=== PATIENT | male | born 1940 | race Caucasian/White ===

== ENCOUNTER 2020-09-06 15:05 | Outpatient (CLI) | payer MEDICARE, BC, SELFPAY ==
--- NOTE | 2020-09-09 09:52 | ONC FU_ITS ---
Dr. Blackwood Patient Follow-Up Note Patient: Eric Lomeli Unit #: [id number]: 1940 Dicatated By: Omid Blackwood M.D.Date of Visit:Sep 06, 2020 Onc Med Follow-up/Prog Note Chief Complaint: Hypogammaglobulinemia/common variable immunodeficiency. 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 He has a history of stage IV Hodgkin's lymphoma for which he underwent 9 months of chemotherapy treatment in 1999. He has since then been in sustained remission, with no evidence of recurrence of the Hodgkin's lymphoma. However, during follow-up he was having recurrent infections, and in 2015 when he developed pneumococcal pneumonia after having had a Prevnar 13 vaccination, his ironer or presser found that he had severe hypogammaglobulinemia. He has since then been on replacement IVIG with significant clinical improvement. He had recently moved to this area from [place], and he was seen here on 05/20/2019 for continuation of his replacement IVIG. He has multiple other medical illnesses including allergic rhinitis and asthma, hypertension, hyperlipidemia, type II diabetes, coronary artery disease, hypothyroidism, benign prostatic hypertrophy, and degenerative arthritis. He also has macular degeneration. He underwent excision of a melanoma from the right arm in March 2019. It apparently was early stage, as he did not require sentinel lymph node sampling. He underwent coronary angioplasty/stent placement in 2015. He has had kidney stones removed on multiple occasions. He has a history of smoking for 20 years, 1/2 pack of cigarettes daily or less. He quit smoking in 1987. INTERIM HISTORY: I had last seen him for a follow-up visit here on 06/20/2019. He had then moved back to [place], but he has decided now to relocate here, and he is desiring to resume his IVIG infusions. He was actually due in the early part of August, so he is already 1 month late. He has been feeling good generally. He has good energy and activity tolerance. ECOG score is 0. Appetite has been good. His weight is up a little. He says his blood sugars have been high. He has no fever or night sweats. He sometimes has cough. He does not complain of shortness of breath or chest pain. He has no GI complaints other than his stools are sometimes frequent, though not diarrhea. Bladder function remains adequate with Rapaflo. He has joint pain in his knees and sometimes in his right hand. For the past 3 months he has been having headaches, mainly in the area behind the right eye. They are relieved with ibuprofen. He has no focal neurologic symptoms. Medications: Alphagan P 2 Drop(s) (of 0.1 %) Solution Ophthalmic b.i.d., Flonase Allergy Relief 2 spray(s) (of 50 mcg/act) Suspension Nasal PRN, glipiZIDE 1 Tablet (of 10 mg) Oral b.i.d., Jardiance 1 Tablet (of 10 mg) Oral daily, Levothyroxine Sodium 1 Tablet (of 150 mcg) Oral daily, Lisinopril 1 Tablet (of 10 mg) Oral daily, Lovastatin 1 Tablet (of 40 mg) Oral daily, metFORMIN HCl 1 Tablet (of 1000 mg) Oral b.i.d., Multivitamin Adults 1 Tablet Oral b.i.d., PreserVision AREDS 2 1 Capsule Oral b.i.d., Rapaflo 1 Capsule (of 8 mg) Oral daily, Trulicity 1 (0.75 Units/0.5mL) Subcutaneous q 7 days, Vitamin C 1 Tablet Oral daily Allergies: No Known Allergies. Review of Systems: Constitutional - He has pretty good energy and he has normal activity. Appetite is good. His weight is up a little. No fever or night sweats. ECOG score is 0, ENMT - He sometimes has sinus drainage. No mouth sores. He sometimes has sore throat or difficulty swallowing, Hematologic/Lymphatic - He has some bruising, Respiratory - No shortness of breath. He sometimes has cough. No pleuritic pain or hemoptysis, Cardiovascular - No angina pain. No palpitations, Gastrointestinal - No nausea or vomiting. No heartburn or acid reflux. He is stools are sometimes frequent, but not diarrhea. No blood in the stool or black stools, Genitourinary (M) - Bladder function has been okay with Rapaflo. No dysuria or hematuria. No urgency or incontinence, Musculoskeletal - He has some joint pain, mainly knees and sometimes right hand, Integumentary - No skin rash, Neurologic - During the past 3 months he has been having headaches, mainly in the area of the right eye. They are relieved with ibuprofen. No dizziness. No numbness or tingling. No other focal neurologic symptoms, Psychiatric - No anxiety or depression. No insomnia. Vital Signs: Performed on Sep 06, 2020 15:24 Height - 68.50 in Weight - 154.0 lbs (LOW) BSA - 1.84 sq.m BMI - 23.08 Temperature - 98.1 F (LOW) Pulse - 79 /min Respiration - 18 /min BP - 109/72 mm(hg) O2 Sat - 98 % Pain - 0 Physical Examination: Constitutional - He looks good generally, Eyes - Sclerae nonicteric. Conjunctivae clear, ENMT - No lesions noted in the oral cavity, Hematologic/Lymphatic - No cervical, clavicular, or axillary adenopathy, Respiratory - Lungs are clear with good air movement bilaterally, Cardiovascular - Heart rhythm is regular. There is no murmur, gallop, or rub noted, Abdomen - Soft. Liver and spleen are not enlarged. There is no abdominal mass or ascites noted and there is no inguinal adenopathy, Extremities - No edema, Neurologic - No focal neurologic deficits noted. Impression: 1. 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 This is presumed to be a consequence of his lymphoma treatment. 2. He has had significant clinical improvement on replacement IVIG. 3. He underwent chemotherapy for stage IV Hodgkin's lymphoma in 1999. He has had sustained complete remission. 4. He underwent excision of melanoma from the right arm in March 2019. His other medical illnesses include: 5. Hypertension. 6. Hyperlipidemia. 7. Type 2 diabetes. 8. Coronary artery disease. 9. Hypothyroidism. 10. Benign prostatic hypertrophy. 11. History of recurrent nephrolithiasis. 12. Degenerative arthritis. 13. Macular degeneration. Plan: He will be given his standard replacement IVIG with 40 g of IgA poor Gammagard as soon as we have it available. He will then return for infusions on a monthly schedule. I will tentatively plan a follow-up visit in 6 months. In the meantime, I also will check his baseline labs and I will try and facilitate getting him established with a primary care provider. Signed By: Omid Blackwood M.D. <<Signature on File>>
== END 2020-09-06 15:06 | disposition home or self-care (01) ==
LOC: ONCMED 15:15
PROVIDERS: Visit Provider Internal Medicine Medical Oncology
DX: D80.1 Nonfamilial hypogammaglobulinemia (principal); I10 Essential (primary) hypertension; E78.5 Hyperlipidemia, unspecified; E11.9 Type 2 diabetes mellitus without complications; I25.10 Atherosclerotic heart disease of native coronary artery without angina pectoris; E03.9 Hypothyroidism, unspecified; N40.0 Benign prostatic hyperplasia without lower urinary tract symptoms; M19.90 Unspecified osteoarthritis, unspecified site; Z87.442 Personal history of urinary calculi
CPT/HCPCS: 99214

== ENCOUNTER 2020-09-13 06:15 | Outpatient (CLI) | payer MEDICARE, BC, SELFPAY ==
[2020-09-13] MEDS: sodium chloride 0.9% 500 ML 250 ML IV (11:45)
[2020-09-13] MEDS: acetaminophen 325 mg Tablet 650 MG PO (11:46)
[2020-09-13] MEDS: diphenhydrAMINE 25 mg Capsule PO (11:46)
[2020-09-13 11:52] LABS: Basophils # 0.1 10^3/uL (0.0-0.1); Basophils % 0.9 %; Eosinophils # 0.2 10^3/uL (0.0-0.8); Eosinophils % 2.5 %; Hematocrit 47.1 % (42.0-52.0); Lymphocytes # 1.6 10^3/uL (0.8-4.8); Lymphocytes % 18.8 %; Mean Corpuscular Hemoglobin 31.6 pg (28.0-34.0); Mean Corpuscular Volume 92.9 fL (80-94); Mean Platelet Volume 8.2 fL (7.4-10.4); Monocytes # 0.7 10^3/uL (0.2-0.9); Neutrophils # 6.05 10^3/uL (1.8-7.7); Neutrophils % 69.5 %; Nucleated Red Blood Cells % 0 %; Platelet Count 251 10^3/cmm (130-400); Red Blood Count 5.07 10^6/uL (4.1-5.3); Red Cell Distribution Width 13.2 % (12.1-15.1); White Blood Count 8.7 10^3/uL (4.0-10.0)
[2020-09-13 12:25] LABS: Alanine Aminotransferase 22 U/L (0-41); Albumin Level 4.8 g/dL (3.5-5.2); Alkaline Phosphatase 94 IU/L (40-130); Anion Gap 15.1 (5-19); Aspartate Amino Transferase 26 U/L (0-40); Blood Urea Nitrogen 17 mg/dL (8-23); Calcium 9.9 mg/dL (8.5-10.5); Carbon Dioxide 26 mmol/L (22-29); Chloride 102 mmol/L (98-107); Globulin 2.2 g/dL (1.3-4.6); Glucose 140 mg/dL (65-115); Osmolality Calculated 292 mOsm/kg (285-295); Potassium 4.1 mmol/L (3.5-5.1); Sodium 139 mmol/L (136-145); Total Bilirubin 0.5 mg/dL (0.15-1.2)
[2020-09-13 13:28] LABS: Estmated Average Glucose 189; Hemoglobin A1C 8.2 % (4.0-6.0)
== END 2020-09-13 06:16 | disposition home or self-care (01) ==
PROVIDERS: Internal Medicine Medical Oncology; Visit Provider Nurse Practitioner
DX: D80.1 Nonfamilial hypogammaglobulinemia (principal); D89.89 Other specified disorders involving the immune mechanism, not elsewhere classified; E11.9 Type 2 diabetes mellitus without complications; Z85.71 Personal history of Hodgkin lymphoma
CPT/HCPCS: 80053; 83036; 85025; 96365; 96366; J1566; J7040

== ENCOUNTER 2020-10-16 09:20 | Outpatient (CLI) | payer MEDICARE, BC, SELFPAY ==
[2020-10-16] MEDS: diphenhydrAMINE 25 mg Capsule PO (09:45)
[2020-10-16] MEDS: acetaminophen 325 mg Tablet 650 MG PO (09:45)
[2020-10-16] MEDS: sodium chloride 0.9% 500 ML 250 ML IV (09:45)
== END 2020-10-16 09:21 | disposition home or self-care (01) ==
PROVIDERS: PCP Family Medicine; Visit Provider Internal Medicine Medical Oncology
DX: D80.1 Nonfamilial hypogammaglobulinemia (principal); D89.89 Other specified disorders involving the immune mechanism, not elsewhere classified; Z85.71 Personal history of Hodgkin lymphoma
CPT/HCPCS: 96365; 96366; J1566; J7040

== ENCOUNTER 2020-11-19 09:37 | Outpatient (CLI) | payer MEDICARE, BC, SELFPAY ==
[2020-11-19] MEDS: diphenhydrAMINE 25 mg Capsule PO (10:40)
[2020-11-19] MEDS: acetaminophen 325 mg Tablet 650 MG PO (10:40)
[2020-11-19] MEDS: sodium chloride 0.9% 500 ML 250 ML IV (10:50)
== END 2020-11-19 09:38 | disposition home or self-care (01) ==
LOC: ONCMED 09:40
PROVIDERS: PCP Family Medicine; Visit Provider Internal Medicine Medical Oncology
DX: D80.1 Nonfamilial hypogammaglobulinemia (principal); D89.89 Other specified disorders involving the immune mechanism, not elsewhere classified; Z85.71 Personal history of Hodgkin lymphoma
CPT/HCPCS: 96365; 96366; J1566; J7040

== ENCOUNTER → 2020-12-25 10:29 | Outpatient (BNVA) | payer MEDICARE, BC, SELFPAY | PROVIDERS: PCP Family Medicine; Visit Provider Family Medicine | DX: E03.9 Hypothyroidism, unspecified (principal); E11.9 Type 2 diabetes mellitus without complications; I10 Essential (primary) hypertension; Z79.4 Long term (current) use of insulin; Z68.22 Body mass index [BMI] 22.0-22.9, adult; F17.211 Nicotine dependence, cigarettes, in remission | CPT/HCPCS: 80053; 80061; 83036; 84443 ==

== ENCOUNTER 2020-12-26 09:18 | Outpatient (CLI) | payer MEDICARE, BC, SELFPAY ==
[2020-12-26] MEDS: acetaminophen 325 mg Tablet 650 MG PO (10:23)
[2020-12-26] MEDS: diphenhydrAMINE 25 mg Capsule PO (10:23)
== END 2020-12-26 09:19 | disposition home or self-care (01) ==
PROVIDERS: PCP Family Medicine; Visit Provider Internal Medicine Medical Oncology
DX: D80.1 Nonfamilial hypogammaglobulinemia (principal); D89.89 Other specified disorders involving the immune mechanism, not elsewhere classified; Z85.71 Personal history of Hodgkin lymphoma
CPT/HCPCS: 96365; 96366; 96375; J1566

== ENCOUNTER 2021-01-23 08:49 | Outpatient (CLI) | payer MEDICARE, BC, SELFPAY ==
[2021-01-23] MEDS: acetaminophen 325 mg Tablet 650 MG PO (09:20)
[2021-01-23] MEDS: diphenhydrAMINE 25 mg Capsule PO (09:20)
[2021-01-23] MEDS: sodium chloride 0.9% 500 ML 250 ML IV (09:20)
== END 2021-01-23 08:50 | disposition home or self-care (01) ==
PROVIDERS: PCP Family Medicine; Visit Provider Internal Medicine Medical Oncology
DX: D80.1 Nonfamilial hypogammaglobulinemia (principal); D89.89 Other specified disorders involving the immune mechanism, not elsewhere classified; Z85.71 Personal history of Hodgkin lymphoma
CPT/HCPCS: 96365; 96366; J1566; J7040

== ENCOUNTER 2021-02-20 08:41 | Outpatient (CLI) | payer MEDICARE, BC, SELFPAY ==
[2021-02-20] MEDS: acetaminophen 325 mg Tablet 650 MG PO (09:30)
[2021-02-20] MEDS: diphenhydrAMINE 25 mg Capsule PO (09:30)
== END 2021-02-20 08:42 | disposition home or self-care (01) ==
PROVIDERS: PCP Family Medicine; Visit Provider Internal Medicine Medical Oncology
DX: D80.1 Nonfamilial hypogammaglobulinemia (principal)
CPT/HCPCS: 96365; 96366; J1566

== ENCOUNTER 2021-03-20 08:15 | Outpatient (CLI) | payer MEDICARE, BC, SELFPAY ==
[2021-03-20 09:13] LABS: Basophils # 0.1 10^3/uL (0.0-0.1); Basophils % 0.7 %; Eosinophils # 0.1 10^3/uL (0.0-0.8); Hematocrit 49.6 % (42.0-52.0); Hemoglobin 16.3 g/dL (11.7-16.6); Lymphocytes # 1.9 10^3/uL (0.8-4.8); Lymphocytes % 19.5 %; Mean Corpuscular HGB Conc 32.9 g/dL (30.0-36.0); Mean Corpuscular Hemoglobin 30.6 pg (28.0-34.0); Mean Corpuscular Volume 93.1 fL (80-94); Mean Platelet Volume 8.8 fL (7.4-10.4); Monocytes # 0.8 10^3/uL (0.2-0.9); Monocytes % 8.5 %; Neutrophils # 6.71 10^3/uL (1.8-7.7); Neutrophils % 70.1 %; Nucleated Red Blood Cells % 0 %; Platelet Count 293 10^3/cmm (130-400); Red Blood Count 5.33 10^6/uL (4.1-5.3); Red Cell Distribution Width 13.5 % (12.1-15.1); White Blood Count 9.6 10^3/uL (4.0-10.0)
[2021-03-20 09:32] LABS: Alanine Aminotransferase 16 U/L (0-41); Albumin Level 4.3 g/dL (3.5-5.2); Alkaline Phosphatase 80 IU/L (40-130); Anion Gap 16.5 (5-19); Aspartate Amino Transferase 21 U/L (0-40); Blood Urea Nitrogen 25 mg/dL (8-23); Calcium 8.8 mg/dL (8.5-10.5); Carbon Dioxide 25 mmol/L (22-29); Chloride 100 mmol/L (98-107); Globulin 2.4 g/dL (1.3-4.6); Glucose 221 mg/dL (65-115); Osmolality Calculated 295 mOsm/kg (285-295); Potassium 4.5 mmol/L (3.5-5.1); Sodium 137 mmol/L (136-145); Total Bilirubin 0.8 mg/dL (0.15-1.2); Total Protein 6.7 g/dL (6.6-8.7)
[2021-03-20] MEDS: diphenhydrAMINE 25 mg Capsule PO (10:17)
[2021-03-20] MEDS: acetaminophen 325 mg Tablet 650 MG PO (10:17)
[2021-03-20] MEDS: sodium chloride 0.9% 500 ML 250 ML IV (10:17)
[2021-03-20 13:27] LABS: Estmated Average Glucose 157; Hemoglobin A1C 7.1 % (4.0-6.0)
--- NOTE | 2021-03-20 19:27 | ONC FU_ITS ---
Dr. Blackwood Patient Follow-Up Note Patient: Eric Lomeli Unit #: [id number]: 1940 Dicatated By: Omid Blackwood M.D.Date of Visit:March 20, 2021 Onc Med Follow-up/Prog Note Chief Complaint: Hypogammaglobulinemia/common variable immunodeficiency. 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 He has a history of stage IV Hodgkin lymphoma for which he underwent 9 months of chemotherapy treatment in 1999. He has since then been in sustained remission, with no evidence of recurrence of the Hodgkin lymphoma. However, during follow-up he was having recurrent infections, and in 2015 when he developed pneumococcal pneumonia after having had a Prevnar 13 vaccination, his materials inspector found that he had severe hypogammaglobulinemia. He then began on replacement IVIG with significant clinical improvement. I had seen him initially in May 2019 after he had moved to this area from [place], and he continued his replacement IVIG. Shortly thereafter he moved back to [place], but he then returned to this area in September 2020, and he has since then continued his IVIG infusions here monthly. He has multiple other medical illnesses including allergic rhinitis and asthma, hypertension, hyperlipidemia, type II diabetes, coronary artery disease, hypothyroidism, benign prostatic hypertrophy, and degenerative arthritis. He also has macular degeneration. He underwent excision of a melanoma from the right arm in March 2019. It apparently was early stage, as he did not require sentinel lymph node sampling. He underwent coronary angioplasty/stent placement in 2015. He has had kidney stones removed on multiple occasions. He has a history of smoking for 20 years, 1/2 pack of cigarettes daily or less. He quit smoking in 1987. INTERIM HISTORY: He is seen for a scheduled visit. He has been feeling good generally. He says his energy has picked up. He has normal activity. ECOG score is 0. He still complains that he has no appetite, but he does eat. His weight is down about 5 pounds. He does not have fever. He had 1 recent episode of sweating. He has sinus congestion and he irrigates daily. He also occasionally uses Flonase and/or Mucinex. He has not had sore mouth or throat. He has cough all the time, but that he also attributes to allergies. He does not complain of shortness of breath or chest pain. He had a recent episode of vomiting. He has occasional acid reflux, managed with Tums. His bowel function is okay, though he tends to have loose stools in the morning until about noon, attributable to coffee. Bladder function remains adequate with Rapaflo. He has no significant joint or bone pain. He does not complain of headache or dizziness, and he has no focal neurologic symptoms. Medications: Alphagan P 2 Drop(s) (of 0.1 %) Solution Ophthalmic b.i.d., Flonase Allergy Relief 2 spray(s) (of 50 mcg/act) Suspension Nasal PRN, glipiZIDE 1 Tablet (of 10 mg) Oral b.i.d., Jardiance 1 Tablet (of 25 mg) Oral daily, Levothyroxine Sodium 1 Tablet (of 150 mcg) Oral daily, Lisinopril 1 Tablet (of 10 mg) Oral daily, Lovastatin 1 Tablet (of 40 mg) Oral daily, metFORMIN HCl 1 Tablet (of 1000 mg) Oral b.i.d., Multivitamin Adults 1 Tablet Oral b.i.d., PreserVision AREDS 2 1 Capsule Oral b.i.d., Rapaflo 1 Capsule (of 8 mg) Oral daily, Trulicity 1 (0.75 Units/0.5mL) Subcutaneous q 7 days, Vitamin C 1 Tablet Oral daily Allergies: No Known Allergies. Vital Signs: Performed on March 20, 2021 09:41 Height - 68.50 in Weight - 149.8 lbs (LOW) BSA - 1.82 sq.m BMI - 22.45 Temperature - 97.5 F (LOW) Pulse - 97 /min Respiration - 16 /min BP - 130/68 mm(hg) O2 Sat - 97 % Pain - 0 Physical Examination: Constitutional - He looks good generally, Eyes - Sclerae nonicteric. Conjunctivae clear, ENMT - No lesions noted in the oral cavity, Hematologic/Lymphatic - No cervical, clavicular, or axillary adenopathy, Respiratory - Lungs are clear with good air movement bilaterally, Cardiovascular - Heart rhythm is regular. There is no murmur, gallop, or rub noted, Abdomen - Soft. Liver and spleen are not enlarged. There is no abdominal mass or ascites noted and there is no inguinal adenopathy, Extremities - No edema, Neurologic - No focal neurologic deficits noted. Lab/Imaging: Test performed on March 20, 2021 08:33 Sodium 137 mmol/L Potassium 4.5 mmol/L Chloride 100 mmol/L Est Avg Glucose (eAG) 157 mg/dL CO2 25 mmol/L Anion Gap 16.5 BUN 25 mg/dL Creatinine 1.1 mg/dL Cr Clearance (Est) 53.19 mL/min Glucose 221 mg/dL Osmolality - Calculated 295 mOsm/kg Calcium 8.8 mg/dL Protein, Total 6.7 g/dL Albumin 4.3 g/dL Globulin 2.4 g/dL Bilirubin, Total 0.8 mg/dL ALT (SGPT) 16 U/L AST (SGOT) 21 U/L Alkaline Phosphatase 80 IU/L Hemoglobin A1C % 7.1 % WBC 9.6 10 3/uL RBC 5.33 10 6/uL HGB 16.3 g/dL HCT 49.6 % MCV 93.1 fL MCH 30.6 pg MCHC 32.9 g/dL RDW 13.5 % Platelet Count 293 10 3/cmm MPV 8.8 fL Neutrophils 6.71 10 3/uL Lymphocytes 1.9 10 3/uL Monocytes 0.8 10 3/uL Eosinophils 0.1 10 3/uL Basophils 0.1 10 3/uL Neutrophil % 70.1 % Lymphocyte % 19.5 % Monocyte % 8.5 % Eosinophil % 1.0 % Basophils % 0.7 % NRBC % 0 % Problem List: 1. Acquired hypogammaglobulinemia/combined variable immunodeficiency. This is presumed to be a consequence of his lymphoma treatment. 2. He underwent chemotherapy for stage IV Hodgkin lymphoma in 1999. He has had sustained complete remission. 3. He underwent excision of melanoma from the right arm in March 2019. 4. Hypertension. 5. Hyperlipidemia. 6. Type 2 diabetes. 7. Coronary artery disease. 8. Hypothyroidism. 9. Benign prostatic hypertrophy. 10. History of recurrent nephrolithiasis. 11. Degenerative arthritis. 12. Macular degeneration. 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 This is presumed to be a consequence of his lymphoma treatment. He has had significant clinical improvement on replacement IVIG. He will be given his standard replacement IVIG with 40 g of IgA poor Gammagard monthly. I will see him again in 6 months, or sooner as needed. Signed By: Omid Blackwood M.D. <<Signature on File>>
== END 2021-03-20 08:16 | disposition home or self-care (01) ==
LOC: ONCMED 08:18
PROVIDERS: PCP Family Medicine; Visit Provider Internal Medicine Medical Oncology
DX: D80.1 Nonfamilial hypogammaglobulinemia (principal); I10 Essential (primary) hypertension; E78.5 Hyperlipidemia, unspecified; E11.59 Type 2 diabetes mellitus with other circulatory complications; I25.10 Atherosclerotic heart disease of native coronary artery without angina pectoris; E03.9 Hypothyroidism, unspecified; N40.0 Benign prostatic hyperplasia without lower urinary tract symptoms; M19.90 Unspecified osteoarthritis, unspecified site; H35.30 Unspecified macular degeneration; Z87.442 Personal history of urinary calculi; Z85.72 Personal history of non-Hodgkin lymphomas; Z85.820 Personal history of malignant melanoma of skin; Z79.899 Other long term (current) drug therapy
CPT/HCPCS: 36415; 80053; 83036; 85025; 96365; 96366; 99214; J1566; J7040

== ENCOUNTER 2021-04-23 09:27 | Outpatient (CLI) | payer MEDICARE, BC, SELFPAY ==
[2021-04-23] MEDS: acetaminophen 325 mg Tablet 650 MG PO (09:55)
[2021-04-23] MEDS: diphenhydrAMINE 25 mg Capsule PO (09:55)
[2021-04-23] MEDS: sodium chloride 0.9% 500 ML 75 ML IV (09:55)
== END 2021-04-23 09:28 | disposition home or self-care (01) ==
LOC: ONCMED 09:29
PROVIDERS: PCP Family Medicine; Visit Provider Internal Medicine Medical Oncology
DX: D80.1 Nonfamilial hypogammaglobulinemia (principal); Z79.899 Other long term (current) drug therapy; Z85.72 Personal history of non-Hodgkin lymphomas; Z92.21 Personal history of antineoplastic chemotherapy
CPT/HCPCS: 96365; 96366; J1566; J7040

== ENCOUNTER → 2021-05-20 12:14 | Outpatient (BNVA) | payer MEDICARE, BC, SELFPAY | PROVIDERS: PCP Family Medicine; Visit Provider Nurse Practitioner Family | DX: Z20.822 Contact with and (suspected) exposure to COVID-19 (principal) | CPT/HCPCS: 87635 ==

== ENCOUNTER 2021-06-06 08:01 | Outpatient (CLI) | payer MEDICARE, BC, SELFPAY ==
[2021-06-06] MEDS: acetaminophen 325 mg Tablet 650 MG PO (09:00)
[2021-06-06] MEDS: diphenhydrAMINE 25 mg Capsule PO (09:00)
== END 2021-06-06 08:02 | disposition home or self-care (01) ==
LOC: ONCMED 08:04
PROVIDERS: PCP Family Medicine; Visit Provider Internal Medicine Medical Oncology
DX: D80.1 Nonfamilial hypogammaglobulinemia (principal); Z79.899 Other long term (current) drug therapy
CPT/HCPCS: 96365; 96366; J1566

== ENCOUNTER 2021-07-23 09:38 | Outpatient (CLI) | payer MEDICARE, BC, SELFPAY ==
[2021-07-23] MEDS: acetaminophen 325 mg Tablet 650 MG PO (09:52)
[2021-07-23] MEDS: diphenhydrAMINE 25 mg Capsule PO (09:52)
[2021-07-23] MEDS: sodium chloride 0.9% 250 ML 45 ML IV (10:00)
== END 2021-07-23 09:39 | disposition home or self-care (01) ==
PROVIDERS: PCP Family Medicine; Visit Provider Internal Medicine Medical Oncology
DX: D80.1 Nonfamilial hypogammaglobulinemia (principal); Z79.899 Other long term (current) drug therapy
CPT/HCPCS: 96365; 96366; J1566; J7050

== ENCOUNTER 2022-09-30 09:05 | Oncology outpatient (recurring) (ONCR) | payer MEDICARE, BC, SELFPAY ==
[2022-09-30 09:33] LABS: Basophils # 0.1 10^3/uL (0.0-0.1); Basophils % 0.7 %; Eosinophils # 0.2 10^3/uL (0.0-0.8); Eosinophils % 2.2 %; Hematocrit 46.6 % (42.0-52.0); Hemoglobin 15.4 g/dL (11.7-16.6); Lymphocytes # 1.4 10^3/uL (0.8-4.8); Lymphocytes % 17.6 %; Mean Corpuscular Hemoglobin 31.4 pg (28.0-34.0); Mean Corpuscular Volume 94.9 fl (80-94); Mean Platelet Volume 8.7 fL (7.4-10.4); Monocytes # 0.6 10^3/uL (0.2-0.9); Neutrophils # 5.89 10^3/uL (1.8-7.7); Neutrophils % 72.3 %; Nucleated Red Blood Cells % 0 %; Platelet Count 221 10^3/cmm (130-400); Red Blood Count 4.91 10^6/uL (4.1-5.3); Red Cell Distribution Width 12.9 % (12.1-15.1); White Blood Count 8.2 10^3/uL (4.0-10.0)
[2022-09-30 09:52] LABS: Alanine Aminotransferase 15 U/L (0-41); Albumin Level 4.3 g/dL (3.5-5.2); Alkaline Phosphatase 113 U/L (40-130); Anion Gap 14.9 (5-19); Aspartate Amino Transferase 16 U/L (0-40); Blood Urea Nitrogen 12 mg/dL (8-23); Calcium 9.6 mg/dL (8.5-10.5); Carbon Dioxide 25 mmol/L (22-29); Chloride 102 mmol/L (98-107); Globulin 2.5 g/dL (1.3-4.6); Glucose 292 mg/dL (65-115); Immunoglobulin IGA 50 mg/dL (70-400); Immunoglobulin IGG 511 mg/dL (700-1600); Immunoglobulin IGM 25 mg/dL (40-230); Osmolality Calculated 297 mOsm/kg (285-295); Potassium 3.9 mmol/L (3.5-5.1); Sodium 138 mmol/L (136-145); Total Bilirubin 0.5 mg/dL (0.15-1.2); Total Protein 6.8 g/dL (6.6-8.7)
[2022-09-30 11:09] LABS: Estmated Average Glucose 200; Hemoglobin A1C 8.6 % (4.0-6.0)
[2022-09-30] MEDS: acetaminophen 325 mg Tablet 650 MG PO (11:48)
[2022-09-30] MEDS: diphenhydrAMINE 25 mg Capsule PO (11:49)
== END 2022-10-01 23:59 | disposition home or self-care (01) ==
PROVIDERS: PCP Family Medicine; Visit Provider Internal Medicine Medical Oncology
DX: D80.1 Nonfamilial hypogammaglobulinemia (principal); Z85.72 Personal history of non-Hodgkin lymphomas; Z92.21 Personal history of antineoplastic chemotherapy; E11.9 Type 2 diabetes mellitus without complications; Z79.4 Long term (current) use of insulin; Z79.899 Other long term (current) drug therapy; Z87.891 Personal history of nicotine dependence
CPT/HCPCS: 80053; 82784; 83036; 85025; 96365; 96366; 99214; 99215; J1566

== ENCOUNTER 2022-11-25 10:39 | Oncology outpatient (recurring) (ONCR) | payer MEDICARE, BC, SELFPAY ==
[2022-11-06] VITALS (8 sets, daily range): BP systolic 120–156; BP diastolic 75–88; PULSE 65–76; RESP 18; TEMP 36.1–36.8; O2SAT 96–98
[2022-11-06] MEDS: sodium chloride 0.9% 250 ML 50 ML IV (10:08)
[2022-11-06] MEDS: acetaminophen 325 mg Tablet 650 MG PO (10:08)
[2022-11-06] MEDS: diphenhydrAMINE 25 mg Capsule PO (10:09)
== END 2022-12-02 23:59 | disposition home or self-care (01) ==
PROVIDERS: PCP Family Medicine; Visit Provider Internal Medicine Medical Oncology
DX: D80.1 Nonfamilial hypogammaglobulinemia (principal)
CPT/HCPCS: 96365; 96366; J1566; J7050

== ENCOUNTER 2022-12-04 11:45 | Oncology outpatient (recurring) (ONCR) | payer MEDICARE, BC, SELFPAY ==
[2022-12-04] VITALS (8 sets, daily range): BP systolic 98–132; BP diastolic 64–79; PULSE 68–76; RESP 16–18; TEMP 36.3–37; O2SAT 95–97
[2022-12-04] MEDS: diphenhydrAMINE 25 mg Capsule PO (12:27)
[2022-12-04] MEDS: acetaminophen 325 mg Tablet 650 MG PO (12:27)
[2022-12-04] MEDS: sodium chloride 0.9% 250 ML 50 ML IV (12:28)
== END 2022-12-30 23:59 | disposition home or self-care (01) ==
PROVIDERS: PCP Family Medicine; Visit Provider Internal Medicine Medical Oncology
DX: D80.1 Nonfamilial hypogammaglobulinemia (principal); Z79.899 Other long term (current) drug therapy
CPT/HCPCS: 96365; J1566; J7050

== ENCOUNTER 2023-01-01 09:57 | Oncology outpatient (recurring) (ONCR) | payer OTHER, SELFPAY ==
[2023-01-01] VITALS (8 sets, daily range): BP systolic 117–165; BP diastolic 71–98; PULSE 75–86; RESP 16–18; TEMP 36.3–36.9; O2SAT 95–98; BMI 22.8
[2023-01-01 10:36] LABS: Basophils # 0.1 10^3/uL (0.0-0.1); Basophils % 0.8 %; Eosinophils # 0.2 10^3/uL (0.0-0.8); Eosinophils % 2.8 %; Hematocrit 46.4 % (42.0-52.0); Hemoglobin 15.2 g/dL (11.7-16.6); Lymphocytes # 1.5 10^3/uL (0.8-4.8); Lymphocytes % 18.8 %; Mean Corpuscular HGB Conc 32.8 g/dL (30.0-36.0); Mean Corpuscular Hemoglobin 30.2 pg (28.0-34.0); Mean Corpuscular Volume 92.1 fl (80-94); Mean Platelet Volume 8.9 fL (7.4-10.4); Monocytes # 0.6 10^3/uL (0.2-0.9); Monocytes % 7.6 %; Neutrophils # 5.49 10^3/uL (1.8-7.7); Neutrophils % 69.6 %; Nucleated Red Blood Cells % 0 %; Platelet Count 192 10^3/cmm (130-400); Red Blood Count 5.04 10^6/uL (4.1-5.3); Red Cell Distribution Width 13.1 % (12.1-15.1); White Blood Count 7.9 10^3/uL (4.0-10.0)
[2023-01-01 10:49] LABS: Alanine Aminotransferase 19 U/L (0-41); Albumin Level 4.2 g/dL (3.5-5.2); Alkaline Phosphatase 115 U/L (40-130); Aspartate Amino Transferase 23 U/L (0-40); Blood Urea Nitrogen 9 mg/dL (8-23); Carbon Dioxide 27 mmol/L (22-29); Chloride 98 mmol/L (98-107); Globulin 2.5 g/dL (1.3-4.6); Glucose 196 mg/dL (65-115); Osmolality Calculated 286 mOsm/kg (285-295); Sodium 136 mmol/L (136-145); Total Bilirubin 0.4 mg/dL (0.15-1.2); Total Protein 6.7 g/dL (6.6-8.7)
[2023-01-01] MEDS: sodium chloride 0.9% 250 ML 50 ML IV (11:24)
[2023-01-01] MEDS: diphenhydrAMINE 25 mg Capsule PO (11:27)
[2023-01-01] MEDS: acetaminophen 325 mg Tablet 650 MG PO (11:28)
[2023-01-01 11:47] LABS: Estmated Average Glucose 203; Hemoglobin A1C 8.7 % (4.0-6.0)
[2023-01-01 11:48] LABS: Cholesterol 148 mg/dL (0-200); HDL Cholesterol 40 mg/dL (60-100); LDL Cholesterol Calculated 87 mg/dL (50-129); LDL HDL Ratio 2.18 RATIO (0.00-3.22); Triglycerides 105 mg/dL (0-150)
== END 2023-01-30 23:59 | disposition home or self-care (01) ==
PROVIDERS: PCP Family Medicine; Visit Provider Internal Medicine Medical Oncology
DX: D80.1 Nonfamilial hypogammaglobulinemia (principal); Z79.899 Other long term (current) drug therapy; Z85.71 Personal history of Hodgkin lymphoma; Z92.21 Personal history of antineoplastic chemotherapy; Z87.891 Personal history of nicotine dependence
CPT/HCPCS: 80053; 80061; 83036; 84443; 85025; 96365; 96366; 99214; J1566; J7050

== ENCOUNTER → 2024-04-08 13:00 | Outpatient (BNVA) | payer MEDICARE, BC, SELFPAY | PROVIDERS: PCP Family Medicine; Visit Provider Family Medicine | DX: I10 Essential (primary) hypertension (principal); E78.5 Hyperlipidemia, unspecified; E11.9 Type 2 diabetes mellitus without complications; Z79.4 Long term (current) use of insulin; E03.9 Hypothyroidism, unspecified; Z12.5 Encounter for screening for malignant neoplasm of prostate; Z79.899 Other long term (current) drug therapy | CPT/HCPCS: 80053; 80061; 83036; 84443; 85025; G0103 ==

== ENCOUNTER 2024-04-13 08:01 | Oncology outpatient (recurring) (ONCR) | payer MEDICARE, BC, SELFPAY ==
[2024-04-13] VITALS (10 sets, daily range): BP systolic 91–148; BP diastolic 51–79; PULSE 58–89; RESP 16–18; TEMP 36.2–36.6; O2SAT 95–98
[2024-04-13] MEDS: acetaminophen 325 mg Tablet 650 MG PO (08:50)
[2024-04-13] MEDS: diphenhydrAMINE 25 mg Capsule PO (08:50)
[2024-04-13] MEDS: immune globulin (Privigen ONC) 40 GM in empty flexible container 1 EACH IV (09:07)
== END 2024-05-01 23:59 | disposition home or self-care (01) ==
PROVIDERS: PCP Family Medicine; Visit Provider Internal Medicine Medical Oncology
DX: D80.1 Nonfamilial hypogammaglobulinemia (principal)
CPT/HCPCS: 36415; 96365; 96366; J1459

== ENCOUNTER 2024-05-11 08:02 | Oncology outpatient (recurring) (ONCR) | payer MEDICARE, BC, SELFPAY ==
[2024-05-11] VITALS (10 sets, daily range): BP systolic 101–149; BP diastolic 58–81; PULSE 64–73; RESP 16–17; TEMP 35.7–36.9; O2SAT 96–98
[2024-05-11] MEDS: acetaminophen 325 mg Tablet 650 MG PO (09:08)
[2024-05-11] MEDS: diphenhydrAMINE 25 mg Capsule PO (09:08)
[2024-05-11] MEDS: sodium chloride 0.9% 250 ML 50 ML IV (09:11)
[2024-05-11] MEDS: immune globulin (Privigen ONC) 40 GM in empty flexible container 1 EACH IV (09:35)
== END 2024-06-01 23:59 | disposition home or self-care (01) ==
PROVIDERS: PCP Family Medicine; Visit Provider Internal Medicine Medical Oncology
DX: D80.1 Nonfamilial hypogammaglobulinemia (principal)
CPT/HCPCS: 96365; 96366; J1459; J7050

== ENCOUNTER 2024-06-14 08:18 | Oncology outpatient (recurring) (ONCR) | payer MEDICARE, BC, SELFPAY ==
[2024-06-14] VITALS (9 sets, daily range): BP systolic 102–138; BP diastolic 62–79; PULSE 69–75; RESP 16; TEMP 36.2–37; O2SAT 95–97
[2024-06-14 08:48] LABS: Basophils # 0.1 10^3/uL (0.0-0.1); Basophils % 1.3 %; Eosinophils # 0.3 10^3/uL (0.0-0.8); Eosinophils % 4.7 %; Hematocrit 45.3 % (37-53); Lymphocytes # 1.2 10^3/uL (0.8-4.8); Lymphocytes % 19.3 %; Mean Corpuscular HGB Conc 34.2 g/dL (30-55); Mean Corpuscular Hemoglobin 31.4 pg (27-33); Mean Corpuscular Volume 91.7 fl (82-101); Monocytes # 0.5 10^3/uL (0.2-0.9); Monocytes % 7.1 %; Neutrophils % 67.3 %; Nucleated Red Blood Cells % 0 %; Platelet Count 172 10^3/cmm (157-399); Red Blood Count 4.94 10^6/uL (3.85-5.65); Red Cell Distribution Width 13.3 % (12.1-15.1); White Blood Count 6.38 10^3/uL (3.29-11.43)
[2024-06-14 09:07] LABS: Alanine Aminotransferase 19 U/L (0-41); Albumin Level 4.2 g/dL (3.5-5.2); Alkaline Phosphatase 102 U/L (40-130); Anion Gap 16.4 (5-19); Aspartate Amino Transferase 20 U/L (0-40); Blood Urea Nitrogen 14 mg/dL (8-23); Carbon Dioxide 23 mmol/L (22-29); Chloride 100 mmol/L (98-107); Globulin 2.5 g/dL (1.3-4.6); Glucose 299 mg/dL (65-115); Immunoglobulin IGG 726 mg/dL (700-1600); Osmolality Calculated 292 mOsm/kg (285-295); Potassium 4.4 mmol/L (3.5-5.1); Sodium 135 mmol/L (136-145); Total Bilirubin 0.5 mg/dL (0.15-1.2); Total Protein 6.7 g/dL (6.6-8.7)
[2024-06-14 09:11] LABS: Immunoglobulin IGA < 50 mg/dL (70-400); Immunoglobulin IGM < 25 mg/dL (40-230)
--- NOTE | 2024-06-14 10:26 | PC.NURSE ---
patient reports that he has not taken premedication prior to his IVIG in 6 years and declines premedications at this time.
[2024-06-14 10:31] LABS: Estmated Average Glucose 212
[2024-06-14] MEDS: immune globulin (Privigen ONC) 40 GM in empty flexible container 1 EACH IV (10:39)
== END 2024-07-02 23:55 | disposition home or self-care (01) ==
PROVIDERS: PCP Family Medicine; Visit Provider Internal Medicine Medical Oncology
DX: D80.1 Nonfamilial hypogammaglobulinemia (principal); D83.9 Common variable immunodeficiency, unspecified; E11.9 Type 2 diabetes mellitus without complications; C81.90 Hodgkin lymphoma, unspecified, unspecified site; Z79.899 Other long term (current) drug therapy
CPT/HCPCS: 80053; 82784; 83036; 85025; 96365; 96366; 99214; J1459

== ENCOUNTER 2024-07-12 12:27 | Oncology outpatient (recurring) (ONCR) | payer MEDICARE, BC, SELFPAY ==
[2024-07-12] VITALS (10 sets, daily range): BP systolic 113–174; BP diastolic 68–85; PULSE 71–82; RESP 16–18; TEMP 36.3–36.9; O2SAT 95–98
--- NOTE | 2024-07-12 13:04 | PC.NURSE ---
per Dr. Blackwood, patient does not need to have premedications prior to IVIG. Patient denies premedication at this time as he has not taken any for the last 6 years.
[2024-07-12] MEDS: immune globulin (Privigen ONC) 40 GM in empty flexible container 1 EACH IV (13:45)
== END 2024-08-01 23:59 | disposition home or self-care (01) ==
LOC: ONCMED 12:29
PROVIDERS: PCP Family Medicine; Visit Provider Internal Medicine Medical Oncology
DX: Z79.899 Other long term (current) drug therapy; D80.1 Nonfamilial hypogammaglobulinemia
CPT/HCPCS: 96365; 96366; J1459

== ENCOUNTER 2024-08-09 13:14 | Oncology outpatient (recurring) (ONCR) | payer MEDICARE, BC, SELFPAY ==
[2024-08-09] VITALS (9 sets, daily range): BP systolic 117–184; BP diastolic 62–99; PULSE 69–82; RESP 16; TEMP 36.3–36.7; O2SAT 95–99
[2024-08-09] MEDS: immune globulin (Privigen ONC) 40 GM in empty flexible container 1 EACH IV (14:22)
== END 2024-09-01 23:59 | disposition home or self-care (01) ==
LOC: ONCMED 13:15
PROVIDERS: PCP Family Medicine; Visit Provider Internal Medicine Hematology & Oncology
DX: D80.1 Nonfamilial hypogammaglobulinemia (principal); Z79.899 Other long term (current) drug therapy
CPT/HCPCS: 96365; 96366; J1459

== ENCOUNTER 2024-08-24 14:10 | Outpatient (CLI) | payer OTHER, SELFPAY ==
--- NOTE | 2024-08-24 14:17 | CTR_ITS ---
PROCEDURE INFORMATION: Exam: CT Chest With Contrast; Diagnostic Exam date and time: 08/24/2024 3:19 PM Age: 84 years old Clinical indication: Condition or disease; Lung condition and disease; Pulmonary nodule, solitary; Additional info: Left upper lobe nodule TECHNIQUE: Imaging protocol: Diagnostic computed tomography of the chest with contrast. Radiation optimization: All CT scans at this facility use at least one of these dose optimization techniques: automated exposure control; mA and/or kV adjustment per patient size (includes targeted exams where dose is matched to clinical indication); or iterative reconstruction. Contrast material: OMNI 350; Contrast volume: 100 ml; Contrast route: INTRAVENOUS (IV); COMPARISON: No relevant prior studies available. RADIATION DOSE METRICS: Total DLP (mGy-cm): 272.95 FINDINGS: Lungs: There is a calcified granuloma involving the left upper lobe. No noncalcified pulmonary nodules are appreciated. No consolidated infiltrates are appreciated. Pleural spaces: Unremarkable. No pneumothorax. No pleural effusion. Heart: Unremarkable. No cardiomegaly. No pericardial effusion. Lymph nodes: There are a few small mediastinal lymph nodes. No enlarged nodes are appreciated. Vasculature: The thoracic aorta is normal in caliber without aneurysm or dissection. There is calcified plaque involving the aorta and coronary vessels. Kidneys: There is a partially imaged right renal cystic lesion Bones/joints: Unremarkable. No acute fracture. Soft tissues: Unremarkable. CT/CT chest w con* [id number] IMPRESSION: 1. Calcified granuloma left upper lobe. COMMENTS: Consistent with the [place] [employer]'s Incidental Findings Committee white paper (J Am Klever Radiol 2018): Any incidental renal lesion less than 1 cm or classified as too small to characterize, or any incidental cystic renal lesion characterized as simple-appearing, is likely benign. No follow-up imaging is recommended for these lesions per consensus recommendations based on imaging criteria.
[2024-08-24] MEDS: iohexol 350 mg/mL 500 mL Btl (per mL) IV (15:41)
[2024-08-24 15:43] LABS: Blood Urea Nitrogen 15 mg/dL (8-23)
== END 2024-08-24 14:11 | disposition home or self-care (01) ==
LOC: RAD 14:11
PROVIDERS: PCP Family Medicine; Visit Provider Family Medicine
DX: J84.10 Pulmonary fibrosis, unspecified (principal)
CPT/HCPCS: 71260; 82565; 84520

== ENCOUNTER 2024-09-06 08:16 | Oncology outpatient (recurring) (ONCR) | payer MEDICARE, BC, SELFPAY ==
[2024-09-06] VITALS (10 sets, daily range): BP systolic 121–160; BP diastolic 63–92; PULSE 67–89; RESP 16; TEMP 36.3–36.7; O2SAT 95–98
[2024-09-06] MEDS: immune globulin (Privigen ONC) 40 GM in empty flexible container 1 EACH IV (09:18)
== END 2024-10-01 23:59 | disposition home or self-care (01) ==
PROVIDERS: PCP Family Medicine; Visit Provider Internal Medicine Hematology & Oncology
DX: D80.1 Nonfamilial hypogammaglobulinemia (principal); Z79.899 Other long term (current) drug therapy
CPT/HCPCS: 96365; 96366; J1459

== ENCOUNTER → 2024-10-06 15:09 | Outpatient (BNVA) | payer MEDICARE, BC, SELFPAY | PROVIDERS: PCP Family Medicine; Visit Provider Internal Medicine Cardiovascular Disease | DX: R07.9 Chest pain, unspecified (principal); R06.02 Shortness of breath; J01.90 Acute sinusitis, unspecified; B96.89 Other specified bacterial agents as the cause of diseases classified elsewhere | CPT/HCPCS: 93005; 99205 ==

== ENCOUNTER 2024-10-17 09:32 | Outpatient (CLI) | payer MEDICARE, BC, SELFPAY ==
--- NOTE | 2024-10-17 | ECG_ITS ---
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 Interpretive Statements Lung unchanged pre/post procedure Intraprocedure shortess of breath Symptoms resoled by discharge PROCEDURE: At the baseline, the EKG revealed normal sinus rhythm with poor R wave progression. Left axis deviation. Left anterior fascicular block. Nonspecific ST-T changes in the high lateral leads. Nonspecific IVCD. The baseline heart was 77 bpm with a blood pressue of 136/76 mm of Hg Lexiscan was infused over a period of 20 seconds. A total of 0.4 milligrams of Lexiscan was infused. The stress phase was continued for a total of 5 minutes. Heart rate at the end of the stress phase was 94 bpm with a blood pressure 123/68 mm of Hg. The EKG at the peak infusion revealed no significant changes. Sestamibi was injected 20 seconds after the Lexiscan infusion. Heart rate at the end of the recovery phase was 90 bpm with a blood pressure of 136/75 mm of Hg. CONCLUSION: 1. No significant EKG changes with the LexiScan infusion 2. No LexiScan induced chest pain or cardiac arrhythmia 3. Normal blood pressure and heart rate response 4. Sestamibi/sestamibi perfusion scan pending; see separate report. Electronically Signed On 10-17-2024 12:44:47 ER MANAGER by Yohannes Thomas M.D. [email or web address]
[2024-10-17 09:42] VITALS: BMI 23.8
--- NOTE | 2024-10-17 09:46 | NMCV_ITS ---
NM curtis perf SPECT r/s* [id number] Eric Lomlei Age: 84 Gender: M : 1940 Exam Date: 10/17/2024 09:46 Ordering Phys: Yohannes Thomas MD ([email or web address]) Technologist: JUAN Mustafa Exam Location: [facility] Indications: CP STRESS TEST Please see separate stress [facility] for full findings IMAGE PROTOCOL Rest/Stress 1 Lexiscan Day Radiopharmaceutical Dose (mCi) Administration Site Administered by Rest: Tc-99m 10.7 IV JUAN Oliveira Sestamibi Stress:Tc-99m 32.9 IV JUAN Mustafa Sestamiswapnil Rest: 17-Oct-2024 60 Discovery 630 Stress: 17-Oct-2024 30 Discovery 630 0.4mg Lexiscan. Images obtained in supine and prone position. SPECT RESULTS Technical Quality: Good Raw Data Analysis: Normal Image Corrections: No attenuation or motion correction applied Summed Stress Score: 2 Summed Rest Score: 11 Summed Difference Score: 0 PERFUSION FINDINGS Small area of slightly decreased tracer uptake were noted in the inferior wall and anteroseptal regions. No significant reversibility was noted in these areas. FUNCTIONAL RESULTS (calculated via Gated SPECT) Stress Image LV EF (%): 32 Stress EDV (mL):158 TID: 1.28 Stress ESV (mL):107 FUNCTIONAL FINDINGS: Segmental wall motion analysis revealed diffuse hypokinesis of the left ventricle with ejection fraction of 32%. IMPRESSIONS 1. Myocardial perfusion imaging revealing small area of slightly decreased persistent tracer uptake in the inferior and anterolateral regions suggesting myocardial scarring versus attenuation artifact 2. Moderately diminished LV ejection fraction of 32%. 3. LV wall motion analysis revealed diffuse hypokinesia left ventricle 4. Moderately dilated LV cavity with an end-systolic volume of 107 mL 5. The elevated transient ischemic dilatation ratio 1.28, may suggest endocardial ischemia. Clinical correlation is recommended. No similar previous studies are available for comparison Dr Yohannes Thomas MD [facility] (Electronically Signed) Final Date: 17 October 2024 12:52 S
[2024-10-17] MEDS: regadenoson 0.4 Mg/5 ml Syringe IVP (11:28)
[2024-10-17 11:43] VITALS: BP 136/65; PULSE 92
== END 2024-10-17 09:33 | disposition home or self-care (01) ==
LOC: CDL 09:33
PROVIDERS: PCP Family Medicine; Visit Provider Internal Medicine Cardiovascular Disease
DX: Z98.61 Coronary angioplasty status (principal); R94.39 Abnormal result of other cardiovascular function study
CPT/HCPCS: 36415; 78452; 93017; 96374; A9500; J2785

== ENCOUNTER 2024-10-25 09:53 | Outpatient (CLI) | payer MEDICARE, BC, SELFPAY ==
--- NOTE | 2024-10-25 09:58 | USCV_ITS ---
Eric Lomeli Age: 84 Gender: M : 1940 Exam Date: 10/25/2024 10:12 Ordering Phys: Yohannes Thomas MD ([email or web address]) Technologist: CT Exam Location: [facility] [place] Indication: BP: 110 / 74 HR: 76 Rhythm: Sinus Technical Quality: Adequate MEASUREMENTS (Male / Female) Normal Values 2D ECHO LVOT Diameter 2.1 cm LV Ejection Fraction MOD 4C 52.7 % LV Ejection Fraction MOD 2C 60.5 % LV Ejection Fraction 2C AL 58.9 % LA Diameter 3.8 cm RA Systolic Volume 4C AL 34.2 ml RA Systolic Volume 4C MOD 34.2 ml LA Sys Volume AL 51.6 cm cubed LA Sys Volume Index AL 28.0 cm cubed/m squared Aorta at Sinotubular Diameter 2.5 cm M-MODE LA Ao Ratio MM 1.7 AV Cusp Separation MM 1.2 cm DOPPLER AV Peak Velocity 260.0 cm/s LVOT Peak Velocity 83.0 cm/s AV Area Cont Eq vti 1.1 cm squared AV Area Cont Eq pk 1.1 cm squared MV Peak Velocity 101.0 cm/s TR Peak Velocity 256.0 cm/s TR Peak Gradient 26.2 mmHg TR Mean Velocity 196.0 cm/s TR Mean Gradient 17.3 mmHg TR Velocity Time Integral 71.8 cm TV Peak E Velocity 69.0 cm/s PV Peak Velocity 105.5 cm/s FINDINGS Left Ventricle Mild to moderate concentric left trickle hypertrophy. Diffuse hypokinesia of the septum and inferior wall segments. Left ventricular ejection fraction is around 45% (visual).Grade I/IV diastolic dysfunction (abnormal relaxation filling pattern), normal to mildly elevated filling pressures. Right Ventricle The right ventricle is normal in size and function. Right Atrium The right atrium is normal in size. Left Atrium The left atrium is normal in size. Mitral Valve Mild mitral annular calcification. Aortic Valve Thickened aortic valve. Moderate aortic valve regurgitation. Moderate aortic valve stenosis, mean gradient 17 mmHg, LORE 1.1 cm squared. Peak velocity of 2.8 m/s with a peak gradient of 31 mmHg Tricuspid Valve Trace tricuspid valve regurgitation. Estimated pulmonary artery peak systolic pressure 20 mmHg Pulmonic Valve No gross abnormalities noted Pericardium No pericardial effusion. Aorta Normal ascending aorta dimension. IVC Inferior vena cava not visualized. CONCLUSIONS Mild to moderate concentric left trickle hypertrophy. Wall motion abnormality as mentioned above. Left ventricular ejection fraction of around 45%. Grade I/IV diastolic dysfunction (abnormal relaxation filling pattern), normal to mildly elevated filling pressures. Moderate aortic valve regurgitation. Moderate aortic valve stenosis, mean gradient 17 mmHg, LORE 1.1 cm squared. Peak velocity of 2.8 m/s with a peak gradient of 31 mmHg. Mild mitral annular calcification. Trace tricuspid valve regurgitation. Estimated pulmonary artery peak systolic pressure 20 mmHg There is no pericardial effusion. There are no intracardiac masses. No similar previous studies are available for comparison Dr Yohannes Thomas MD [facility] (Electronically Signed) Final Date: 30 October 2024 18:27 S
== END 2024-10-25 09:54 | disposition home or self-care (01) ==
LOC: RAD 09:57
PROVIDERS: PCP Family Medicine; Visit Provider Family Medicine
DX: I50.30 Unspecified diastolic (congestive) heart failure (principal); I35.2 Nonrheumatic aortic (valve) stenosis with insufficiency; I42.2 Other hypertrophic cardiomyopathy; R06.09 Other forms of dyspnea
CPT/HCPCS: 93306

== ENCOUNTER 2024-11-01 08:30 | Oncology outpatient (recurring) (ONCR) | payer MEDICARE, BC, SELFPAY ==
[2024-10-04] VITALS (10 sets, daily range): BP systolic 124–168; BP diastolic 72–90; PULSE 71–79; RESP 16; TEMP 35.9–36.7; O2SAT 94–96
[2024-10-04] MEDS: immune globulin (Privigen ONC) 40 GM in empty flexible container 1 EACH IV (10:01)
== END 2024-11-01 23:59 | disposition home or self-care (01) ==
PROVIDERS: PCP Family Medicine; Visit Provider Internal Medicine Cardiovascular Disease
DX: E11.9 Type 2 diabetes mellitus without complications; Z79.4 Long term (current) use of insulin
CPT/HCPCS: 83036; 96365; 96366; J1459

== ENCOUNTER 2024-11-29 08:30 | Oncology outpatient (recurring) (ONCR) | payer MEDICARE, BC, SELFPAY ==
[2024-11-07] VITALS (8 sets, daily range): BP systolic 94–147; BP diastolic 45–86; PULSE 68–84; RESP 16; TEMP 36.5–36.9; O2SAT 93–96
[2024-11-07] MEDS: immune globulin (Privigen ONC) 40 GM in empty flexible container 1 EACH IV (10:15)
== END 2024-12-02 23:59 | disposition home or self-care (01) ==
PROVIDERS: Visit Provider Family Medicine
DX: Z53.9 Procedure and treatment not carried out, unspecified reason (principal)
CPT/HCPCS: 96365; 96366; J1459

== ENCOUNTER → 2024-11-29 10:45 | Outpatient (BNVA) | payer MEDICARE, BC, SELFPAY | PROVIDERS: Visit Provider Nurse Practitioner Family | DX: I25.118 Atherosclerotic heart disease of native coronary artery with other forms of angina pectoris (principal); I11.0 Hypertensive heart disease with heart failure; I50.20 Unspecified systolic (congestive) heart failure; E11.9 Type 2 diabetes mellitus without complications; Z87.891 Personal history of nicotine dependence; Z79.4 Long term (current) use of insulin; E78.5 Hyperlipidemia, unspecified; E03.9 Hypothyroidism, unspecified | CPT/HCPCS: 99214 ==

== ENCOUNTER 2024-12-05 08:32 | Oncology outpatient (recurring) (ONCR) | payer MEDICARE, BC, SELFPAY ==
[2024-12-05] MEDS: immune globulin (Privigen ONC) 40 GM in empty flexible container 1 EACH IV (09:04)
[2024-12-05 09:07] VITALS: BP 105/64; PULSE 75; RESP 16; TEMP 36.4; O2SAT 94
[2024-12-05 09:20] VITALS: BP 101/59; PULSE 75; RESP 16; TEMP 36.9; O2SAT 94
[2024-12-05 10:42] VITALS: BP 121/74; PULSE 75; RESP 16; TEMP 36.6; O2SAT 93
[2024-12-05 11:38] VITALS: BP 129/77; PULSE 76; RESP 17; TEMP 36.6; O2SAT 94
== END 2024-12-30 23:59 | disposition home or self-care (01) ==
PROVIDERS: Visit Provider Nurse Practitioner Family
DX: D80.1 Nonfamilial hypogammaglobulinemia (principal); Z79.899 Other long term (current) drug therapy
CPT/HCPCS: 96365; 96366; J1459

== ENCOUNTER → 2025-01-05 09:46 | Outpatient (BNVA) | payer MEDICARE, BC, SELFPAY | PROVIDERS: Visit Provider Nurse Practitioner Family | DX: I25.118 Atherosclerotic heart disease of native coronary artery with other forms of angina pectoris (principal); I11.0 Hypertensive heart disease with heart failure; I50.20 Unspecified systolic (congestive) heart failure; E78.2 Mixed hyperlipidemia; E11.9 Type 2 diabetes mellitus without complications; E03.9 Hypothyroidism, unspecified; Z87.891 Personal history of nicotine dependence; Z79.4 Long term (current) use of insulin | CPT/HCPCS: 99213 ==

== ENCOUNTER 2025-01-30 08:00 | Oncology outpatient (recurring) (ONCR) | payer MEDICARE, BC, SELFPAY ==
[2025-01-02] VITALS (7 sets, daily range): BP systolic 107–135; BP diastolic 65–77; PULSE 67–74; RESP 16–18; TEMP 35.9–36.8; O2SAT 94–97
[2025-01-02 08:32] LABS: Basophils # 0.1 10^3/uL (0.0-0.1); Basophils % 1.4 %; Eosinophils # 0.4 10^3/uL (0.0-0.8); Eosinophils % 5.9 %; Lymphocytes # 1.1 10^3/uL (0.8-4.8); Mean Corpuscular Hemoglobin 30.3 pg (27-33); Mean Platelet Volume 9.4 fL (7.4-10.4); Monocytes # 0.4 10^3/uL (0.2-0.9); Monocytes % 7.1 %; Neutrophils # 3.93 10^3/uL (1.8-7.7); Neutrophils % 66.4 %; Nucleated Red Blood Cells % 0 %; Platelet Count 149 10^3/cmm (157-399); Red Blood Count 5.11 10^6/uL (3.85-5.65); Red Cell Distribution Width 13.5 % (12.1-15.1); White Blood Count 5.91 10^3/uL (3.29-11.43)
[2025-01-02 08:50] LABS: Alanine Aminotransferase 18 U/L (0-41); Albumin Level 4.1 g/dL (3.5-5.2); Alkaline Phosphatase 88 U/L (40-130); Aspartate Amino Transferase 26 U/L (0-40); Blood Urea Nitrogen 14 mg/dL (8-23); Calcium 9.2 mg/dL (8.5-10.5); Carbon Dioxide 27 mmol/L (22-29); Chloride 100 mmol/L (98-107); Globulin 2.3 g/dL (1.3-4.6); Glucose 252 mg/dL (65-115); Osmolality Calculated 291 mOsm/kg (285-295); Sodium 136 mmol/L (136-145); Total Bilirubin 0.4 mg/dL (0.15-1.2); Total Protein 6.4 g/dL (6.6-8.7)
[2025-01-02 09:01] LABS: Anion Gap 13.2 (5-19); Potassium 4.2 mmol/L (3.5-5.1)
[2025-01-02] MEDS: immune globulin (Privigen ONC) 40 GM in empty flexible container 1 EACH IV (09:41)
[2025-01-02 11:02] LABS: Estmated Average Glucose 209; Hemoglobin A1C 8.9 % (4.0-6.0)
[2025-01-30 08:10] VITALS: BP 146/75; PULSE 86; RESP 16; TEMP 36.8; O2SAT 98
[2025-01-30] MEDS: immune globulin (Privigen ONC) 40 GM in empty flexible container 1 EACH IV (08:24)
[2025-01-30 08:40] VITALS: BP 110/69; PULSE 82; RESP 16; TEMP 35.8; O2SAT 98
[2025-01-30 10:15] VITALS: BP 139/77; PULSE 72; RESP 16; TEMP 36.3; O2SAT 94
[2025-01-30 10:55] VITALS: BP 148/90; PULSE 77; RESP 16; TEMP 36.3; O2SAT 96
== END 2025-01-30 23:59 | disposition home or self-care (01) ==
PROVIDERS: Internal Medicine Medical Oncology; Visit Provider Nurse Practitioner Family
DX: Z53.9 Procedure and treatment not carried out, unspecified reason; D80.1 Nonfamilial hypogammaglobulinemia; Z79.899 Other long term (current) drug therapy
CPT/HCPCS: 80053; 83036; 85025; 96365; 96366; 99214; J1459

== ENCOUNTER 2025-02-27 07:52 | Oncology outpatient (recurring) (ONCR) | payer MEDICARE, BC, SELFPAY ==
[2025-02-27 08:02] VITALS: BP 123/70; PULSE 87; RESP 16; TEMP 35.9; O2SAT 95
[2025-02-27] MEDS: immune globulin (Privigen ONC) 40 GM in empty flexible container 1 EACH IV (08:16)
[2025-02-27 08:33] VITALS: BP 107/67; PULSE 72; RESP 16; TEMP 35.8; O2SAT 97
[2025-02-27 10:08] VITALS: BP 129/74; PULSE 73; RESP 16; TEMP 35.9; O2SAT 96
[2025-02-27 10:36] VITALS: BP 143/93; PULSE 79; RESP 16; TEMP 36.1; O2SAT 95
== END 2025-03-01 23:59 | disposition home or self-care (01) ==
PROVIDERS: Visit Provider Nurse Practitioner Family
DX: D80.1 Nonfamilial hypogammaglobulinemia (principal); Z79.899 Other long term (current) drug therapy
CPT/HCPCS: 96365; 96366; A4222; J1459

== ENCOUNTER 2025-03-09 09:08 | Outpatient (CLI) | payer OTHER, SELFPAY ==
--- NOTE | 2025-03-09 09:11 | MR_ITS ---
WS: [id number] MRI BRAIN WITH AND WITHOUT CONTRAST HISTORY: TIA COMPARISON: None available. TECHNIQUE: Multiplanar imaging performed through the brain with MultiHance 15 ml's IV. Normal diffusion imaging. No acute infarct. Moderate symmetric volume loss with moderate small vessel ischemic changes in the subcortical and periventricular white matter. Prior lacunar infarcts RIGHT cerebellum. Mild bilateral symmetric hippocampal atrophy. No hemosiderin. Ventricles and extra-axial spaces are slightly prominent on the basis of atrophy. Clivus and pituitary gland are normal. Visualized posterior fossa and brainstem are also normal. Postcontrast images are negative for masses or vascular malformations. Intracranial carotid arteries are tortuous and prominent but no heterogeneity or obstruction. Dural venous sinuses are normal. Paranasal sinuses: Complete opacification RIGHT maxillary sinus. Mastoid air cells: Normal. Calvarium and scalp: Normal. MR/MR head wo/w con [id number] IMPRESSION: 1. Normal diffusion imaging. No acute infarct. 2. No hemorrhage or hemosiderin. 3. Moderate symmetric cerebral volume loss and small vessel disease. 4. 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 5. RIGHT maxillary sinusitis. 6. No enhancing masses.
== END 2025-03-09 09:09 | disposition home or self-care (01) ==
PROVIDERS: PCP Family Medicine; Visit Provider Family Medicine
DX: Z01.89 Encounter for other specified special examinations (principal); R93.0 Abnormal findings on diagnostic imaging of skull and head, not elsewhere classified; J32.0 Chronic maxillary sinusitis; G31.89 Other specified degenerative diseases of nervous system
CPT/HCPCS: 70553

== ENCOUNTER 2025-03-28 08:00 | Oncology outpatient (recurring) (ONCR) | payer MEDICARE, BC, SELFPAY ==
--- NOTE | 2025-03-02 14:15 | USCV_ITS ---
Eric Lomeli Age: 84 Gender: M : 1940 Exam Date: 03/02/2025 14:19 Ordering Phys: Gisel Ocampo NP Technologist: ALICE Exam Location: [facility] [place] Indication: Systolic HF, Aortic valve stenosis BP: 118 / 74 HR: 73 Rhythm: Sinus Technical Quality: Adequate MEASUREMENTS (Male / Female) Normal Values 2D ECHO LV Diastolic Diameter PLAX 4.9 cm 4.2 - 5.9 / 3.9 - 5.3 cm IVS Diastolic Thickness 1.2 cm 0.6 - 1.0 / 0.6 - 0.9 cm IVS Systolic Thickness 1.6 cm LVPW Diastolic Thickness 1.0 cm 0.6 - 1.0 / 0.6 - 0.9 cm LVPW Systolic Thickness 2.0 cm LVOT Diameter 2.0 cm LV Ejection Fraction 2D Teich 50.4 % LV Ejection Fraction MOD 4C 47.5 % LV Ejection Fraction MOD 2C 37.2 % LV Ejection Fraction 2C AL 38.5 % LA Diameter 4.2 cm RA Systolic Volume 4C AL 41.3 ml RA Systolic Volume 4C MOD 40.3 ml LA Sys Volume AL 50.7 cm cubed LA Sys Volume Index AL 27.5 cm cubed/m squared Aorta at Sinotubular Diameter 2.6 cm M-MODE LA Ao Ratio MM 1.6 AV Cusp Separation MM 1.2 cm DOPPLER AV Peak Velocity 241.5 cm/s LVOT Peak Velocity 83.0 cm/s AV Area Cont Eq vti 1.2 cm squared AV Area Cont Eq pk 1.1 cm squared MV Peak Velocity 117.0 cm/s MV Area PHT 4.2 cm squared Mitral E to A Ratio 0.5 TR Peak Velocity 91.0 cm/s TR Peak Gradient 3.3 mmHg TV Peak E Velocity 82.0 cm/s PV Peak Velocity 104.0 cm/s FINDINGS Left Ventricle Mildly increased left ventricular cavity size. Moderately decreased left ventricular systolic function. Left ventricular ejection fraction is estimated at 45 %. Global left ventricular hypokinesis. Grade I/IV diastolic dysfunction (abnormal relaxation filling pattern), normal to mildly elevated filling pressures. Right Ventricle The right ventricle is normal in size and function. Right Atrium The right atrium is normal in size. Left Atrium Moderately increased left atrial size. Mitral Valve Structurally normal mitral valve without significant stenosis or prolapse. There is no mitral regurgitation. Aortic Valve Severe aortic valve calcification. Moderate aortic valve stenosis, mean gradient 12.2 mmHg, LORE 1.2 cm squared. Mild aortic valve regurgitation. Tricuspid Valve Structurally normal tricuspid valve without significant stenosis or regurgitation. Pulmonary artery systolic pressure is normal. Pulmonic Valve Structurally normal pulmonic valve without significant stenosis. There is no pulmonic regurgitation. Pericardium Normal pericardium without effusion. Aorta Normal ascending aorta dimension. IVC The inferior vena cava appears normal. CONCLUSIONS Mildly increased left ventricular cavity size. Moderately decreased left ventricular systolic function. Left ventricular ejection fraction is estimated at 45 %. Global left ventricular hypokinesis. Grade I/IV diastolic dysfunction (abnormal relaxation filling pattern), normal to mildly elevated filling pressures. Moderately increased left atrial size. Severe aortic valve calcification. Moderate aortic valve stenosis, mean gradient 12.2 mmHg, LORE 1.2 cm squared. Mild aortic valve regurgitation. Structurally normal mitral valve without significant stenosis or prolapse. There is no mitral regurgitation. There is no pericardial effusion. Right atrial pressure is around 5 mm of mercury. Marjorie Jason MD (Electronically Signed) Final Date: 03 Mar 2025 12:31 S
[2025-03-28] MEDS: immune globulin (Privigen ONC) 40 GM in empty flexible container 1 EACH IV (08:19)
[2025-03-28 08:20] VITALS: BP 116/72; PULSE 72; RESP 16; TEMP 36.6; O2SAT 95
[2025-03-28 08:35] VITALS: BP 115/72; PULSE 78; RESP 16; O2SAT 94
[2025-03-28 09:05] VITALS: BP 115/69; PULSE 78; RESP 16; O2SAT 94
[2025-03-28 10:51] VITALS: BP 149/89; PULSE 78; RESP 18; TEMP 36.4; O2SAT 96
== END 2025-04-01 23:59 | disposition home or self-care (01) ==
PROVIDERS: Visit Provider Nurse Practitioner Family
DX: Z53.9 Procedure and treatment not carried out, unspecified reason; D80.1 Nonfamilial hypogammaglobulinemia; Z79.899 Other long term (current) drug therapy
CPT/HCPCS: 93306; 96365; 96366; J1459

== ENCOUNTER → 2025-04-04 10:14 | Outpatient (BNVA) | payer BC, MEDICARE, SELFPAY | PROVIDERS: Family Provider Family Medicine; PCP Nurse Practitioner; Visit Provider Nurse Practitioner | DX: E11.9 Type 2 diabetes mellitus without complications (principal); E03.9 Hypothyroidism, unspecified | CPT/HCPCS: 83036; 84443 ==

== ENCOUNTER 2025-04-24 07:49 | Oncology outpatient (recurring) (ONCR) | payer MEDICARE, BC, SELFPAY ==
[2025-04-24 08:14] VITALS: BP 132/80; PULSE 80; RESP 16; TEMP 36.4; O2SAT 95
[2025-04-24] MEDS: immune globulin (Privigen ONC) 40 GM in empty flexible container 1 EACH IV (08:15)
[2025-04-24 09:00] VITALS: BP 124/73; PULSE 75; RESP 16; TEMP 36.3; O2SAT 96
[2025-04-24 10:45] VITALS: BP 124/73; PULSE 78; RESP 16; O2SAT 96
== END 2025-05-01 23:59 | disposition home or self-care (01) ==
LOC: ONCMED 07:49
PROVIDERS: Family Provider Family Medicine; PCP Nurse Practitioner; Visit Provider Nurse Practitioner Family
DX: D80.1 Nonfamilial hypogammaglobulinemia (principal); Z79.899 Other long term (current) drug therapy
CPT/HCPCS: 96365; 96366; J1459

== ENCOUNTER → 2025-04-27 12:51 | Outpatient (BNVA) | payer OTHER, SELFPAY | PROVIDERS: Family Provider Family Medicine; PCP Nurse Practitioner; Visit Provider Nurse Practitioner Family | DX: L57.8 Other skin changes due to chronic exposure to nonionizing radiation (principal); L82.1 Other seborrheic keratosis; D22.5 Melanocytic nevi of trunk; Z08 Encounter for follow-up examination after completed treatment for malignant neoplasm; Z85.828 Personal history of other malignant neoplasm of skin | CPT/HCPCS: 17000; 99203 ==

== ENCOUNTER 2025-05-22 08:03 | Oncology outpatient (recurring) (ONCR) | payer MEDICARE, BC, SELFPAY ==
[2025-05-22 08:25] VITALS: BP 101/61; PULSE 80; RESP 16; TEMP 36.5; O2SAT 99
[2025-05-22 08:26] VITALS: BMI 24.0
[2025-05-22] MEDS: immune globulin (Privigen ONC) 40 GM in empty flexible container 1 EACH IV (09:02)
[2025-05-22 09:17] VITALS: BP 99/53; PULSE 73; RESP 16; TEMP 36.4; O2SAT 96
[2025-05-22 10:32] VITALS: BP 118/75; PULSE 76; RESP 16; TEMP 36.4; O2SAT 97
[2025-05-22 11:37] VITALS: BP 109/74; PULSE 74; TEMP 36.4; O2SAT 97
== END 2025-06-01 23:59 | disposition home or self-care (01) ==
PROVIDERS: Family Provider Family Medicine; PCP Nurse Practitioner; Visit Provider Nurse Practitioner Family
DX: D80.1 Nonfamilial hypogammaglobulinemia (principal); Z79.899 Other long term (current) drug therapy
CPT/HCPCS: 96365; 96366; J1459

== ENCOUNTER 2025-06-21 07:52 | Oncology outpatient (recurring) (ONCR) | payer MEDICARE, BC, SELFPAY ==
[2025-06-21 08:17] VITALS: BP 112/70; PULSE 77; RESP 18; TEMP 35.6
[2025-06-21] MEDS: Immune Globulin (Gamunex-C) 20 GM, immune globulin (Gamunex-C) 10 GM in empty flexible ... IV (08:27)
[2025-06-21 08:45] VITALS: BP 118/70; PULSE 75; RESP 16; TEMP 36.4; O2SAT 96
[2025-06-21 10:30] VITALS: BP 129/77; PULSE 84; RESP 16; TEMP 36.2; O2SAT 99
== END 2025-07-02 23:59 | disposition home or self-care (01) ==
LOC: ONCMED 07:53
PROVIDERS: Family Provider Family Medicine; PCP Nurse Practitioner; Visit Provider Nurse Practitioner Family
DX: D80.1 Nonfamilial hypogammaglobulinemia (principal); Z79.620 Long term (current) use of immunosuppressive biologic; Z79.899 Other long term (current) drug therapy
CPT/HCPCS: 96365; 96366; J1561

== ENCOUNTER → 2025-07-11 11:22 | Outpatient (BNVA) | payer MEDICARE, BC, SELFPAY | PROVIDERS: Family Provider Family Medicine; PCP Nurse Practitioner; Visit Provider Internal Medicine | DX: I25.10 Atherosclerotic heart disease of native coronary artery without angina pectoris (principal); I10 Essential (primary) hypertension; E78.5 Hyperlipidemia, unspecified; E03.9 Hypothyroidism, unspecified; E11.9 Type 2 diabetes mellitus without complications; Z79.4 Long term (current) use of insulin; Z79.84 Long term (current) use of oral hypoglycemic drugs; Z95.5 Presence of coronary angioplasty implant and graft; Z87.891 Personal history of nicotine dependence; R42 Dizziness and giddiness | CPT/HCPCS: 99214 ==

== ENCOUNTER 2025-07-26 08:31 | Oncology outpatient (recurring) (ONCR) | payer MEDICARE, BC, SELFPAY ==
[2025-07-17 08:52] LABS: Hematocrit 46.9 % (37-53); Hemoglobin 15.60 g/dL (11.27-16.99); Mean Corpuscular HGB Conc 33.3 g/dL (30-55); Mean Corpuscular Hemoglobin 30.2 pg (27-33); Mean Corpuscular Volume 90.9 fl (82-101); Nucleated Red Blood Cells % 0 %; Platelet Count 140 10^3/cmm (157-399); Red Blood Count 5.16 10^6/uL (3.85-5.65); White Blood Count 6.64 10^3/uL (3.29-11.43)
[2025-07-17 09:10] LABS: Alanine Aminotransferase 24 U/L (0-41); Albumin Level 4.3 g/dL (3.5-5.2); Alkaline Phosphatase 101 U/L (40-130); Anion Gap 17.4 (5-19); Aspartate Amino Transferase 26 U/L (0-40); Blood Urea Nitrogen 16 mg/dL (8-23); Calcium 9.0 mg/dL (8.5-10.5); Carbon Dioxide 24 mmol/L (22-29); Chloride 105 mmol/L (98-107); Creatinine Clr Calc Pharmacy 61.4759; Globulin 2.4 g/dL (1.3-4.6); Glucose 237 mg/dL (65-115); Osmolality Calculated 303 mOsm/kg (285-295); Potassium 4.4 mmol/L (3.5-5.1); Sodium 142 mmol/L (136-145); Total Protein 6.7 g/dL (6.6-8.7)
[2025-07-17] MEDS: Immune Globulin (Gamunex-C) 20 GM, immune globulin (Gamunex-C) 10 GM in empty flexible ... IV (10:12)
[2025-07-17 12:15] VITALS: BP 143/88; PULSE 80; TEMP 36.2; O2SAT 98
--- NOTE | 2025-07-26 08:30 | USCV_ITS ---
Eric Lomeli Age: 85 Gender: M : 1940 Exam Date: 07/26/2025 08:45 Ordering Phys: Benjamin Reeves M.D ([email or web address]) Technologist: TAO Exam Location: [facility] – [place] Indication: dizziness Risk Factors: Previous Vascular Surgery: Right Brachial BP: / Left Brachial BP: / Right Left Velocity (cm/s) Spectral Plaque Velocity (cm/s) Spectral Plaque Syst/Diast Broadening Syst/Diast Broadening / Prox CCA 56.60 / 5.90 57.90/ 7.10 Mid CCA 65.10 / 11.50 48.10/ 9.10 Distal CCA 46.80 / 8.70 37.30/ 8.30 Prox ICA 33.00 / 5.00 46.80/ 9.20 Mid ICA 36.00 / 8.80 40.50/ 6.10 Distal ICA 42.40 / 9.10 78.60 ECA 87.10 1.00 ICA/CCA 0.90 Antegrade Vertebral Antegrade 12.20/ 7.40 cm/s 21.20/ 5.30 cm/s Tri Subclavian Tri 59.20 60.20 CONCLUSIONS Right ICA stenosis <50%. Moderate atheromatous plaque right carotid bulb/ICA. Left ICA stenosis <50%. Moderate atheromatous plaque left carotid bulb/ICA. Intimal thickening in the common carotid arteries and internal carotid arteries bilaterally. Normal antegrade Doppler flow noted in the right vertebral artery. Normal antegrade Doppler flow noted in the left vertebral artery. Toño Boswell MD (Electronically Signed) Final Date: 26 July 2025 09:08 S
== END 2025-08-01 23:59 | disposition home or self-care (01) ==
LOC: ONCMED 16:04 → RAD 07-27
PROVIDERS: Internal Medicine Medical Oncology; Absent Provider Internal Medicine; Family Provider Family Medicine; PCP Nurse Practitioner; Visit Provider Nurse Practitioner Family
DX: Z53.9 Procedure and treatment not carried out, unspecified reason; R42 Dizziness and giddiness; I65.23 Occlusion and stenosis of bilateral carotid arteries
CPT/HCPCS: 80053; 85025; 93880; 96365; 96366; 99214; J1561

== ENCOUNTER 2025-08-14 09:19 | Oncology outpatient (recurring) (ONCR) | payer MEDICARE, BC, SELFPAY ==
--- NOTE | 2025-08-11 08:00 | MR_ITS ---
WS: [id number] MRI BRAIN WITHOUT CONTRAST HISTORY: Z87.898 - Personal history of other specified conditions COMPARISON: 03/09/2025 TECHNIQUE: Diffusion imaging, multiplanar T1, T2 and FLAIR imaging obtained. No acute infarct. Diffusion imaging is normal. Moderate bilateral hippocampal atrophy. Moderate symmetric cerebral and cerebellar volume loss with moderate small vessel changes in the subcortical and periventricular white matter. Prior infarcts in the RIGHT cerebellum. No new infarct or progression of disease. Ventricles and extra-axial spaces are prominent on the basis of atrophy. No hydrocephalus. No inferior displacement of cerebellar tonsils. The sella turcica and pituitary gland are unremarkable. Dural venous sinuses and [place] of [place] demonstrate no abnormality on this unenhanced studies. Paranasal sinuses: Complete opacification of the RIGHT maxillary sinus. Heterogeneous RIGHT maxillary sinus disease. No air-fluid levels. Mastoid air cells: Small amount of fluid bilaterally in the mastoid air cells. Calvarium and scalp: Intact. MR/MR head wo con* [id number] IMPRESSION: 1. No acute infarct. Diffusion imaging is normal. 2. Moderate symmetric cerebral and cerebellar atrophy and small vessel disease is unchanged. 3. 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 4. Moderate hippocampal atrophy. 5. RIGHT maxillary sinusitis. 6. Bilateral mastoid air cell effusions.
[2025-08-14 10:21] VITALS: BP 112/69; PULSE 71; RESP 16; TEMP 36.7; O2SAT 95
[2025-08-14] MEDS: Immune Globulin (Gamunex-C) 20 GM, immune globulin (Gamunex-C) 10 GM in empty flexible ... IV (10:21)
[2025-08-14 10:36] VITALS: BP 118/73; PULSE 74; RESP 16; TEMP 36.4; O2SAT 96
[2025-08-14 12:31] VITALS: BP 145/90; PULSE 79; RESP 16; TEMP 36.2; O2SAT 96
== END 2025-09-01 23:59 | disposition home or self-care (01) ==
PROVIDERS: Family Provider Family Medicine; PCP Nurse Practitioner; Visit Provider Nurse Practitioner
DX: D80.1 Nonfamilial hypogammaglobulinemia (principal); Z79.620 Long term (current) use of immunosuppressive biologic; Z79.899 Other long term (current) drug therapy
CPT/HCPCS: 70551; 96365; 96366; J1561

== ENCOUNTER 2025-09-11 08:02 | Oncology outpatient (recurring) (ONCR) | payer MEDICARE, BC, SELFPAY ==
[2025-09-11] MEDS: Immune Globulin (Gamunex-C) 20 GM, immune globulin (Gamunex-C) 10 GM in empty flexible ... IV (08:59)
[2025-09-11 09:00] VITALS: BP 95/57; PULSE 57; TEMP 36.3; O2SAT 99
[2025-09-11 10:35] VITALS: BP 104/67; PULSE 80; TEMP 36.3; O2SAT 97
[2025-09-11 11:06] VITALS: BP 125/77; PULSE 84; TEMP 36.2; O2SAT 99
== END 2025-10-01 23:59 | disposition home or self-care (01) ==
PROVIDERS: Family Provider Family Medicine; PCP Nurse Practitioner; Visit Provider Nurse Practitioner
DX: D80.1 Nonfamilial hypogammaglobulinemia (principal); Z79.620 Long term (current) use of immunosuppressive biologic; Z79.899 Other long term (current) drug therapy
CPT/HCPCS: 96365; 96366; J1561

== ENCOUNTER → 2025-09-25 09:41 | Outpatient (BNVA) | payer MEDICARE, BC, SELFPAY | PROVIDERS: Family Provider Family Medicine; PCP Nurse Practitioner; Visit Provider Nurse Practitioner Family | DX: I25.118 Atherosclerotic heart disease of native coronary artery with other forms of angina pectoris (principal); I11.0 Hypertensive heart disease with heart failure; I50.9 Heart failure, unspecified; E78.5 Hyperlipidemia, unspecified; E03.9 Hypothyroidism, unspecified; E11.9 Type 2 diabetes mellitus without complications; Z79.84 Long term (current) use of oral hypoglycemic drugs; R00.0 Tachycardia, unspecified; I35.0 Nonrheumatic aortic (valve) stenosis; Z95.5 Presence of coronary angioplasty implant and graft; Z86.73 Personal history of transient ischemic attack (TIA), and cerebral infarction without residual deficits; Z87.891 Personal history of nicotine dependence; R00.2 Palpitations; I10 Essential (primary) hypertension | CPT/HCPCS: 36415; 83880; 99214 ==

== ENCOUNTER 2025-10-09 08:01 | Oncology outpatient (recurring) (ONCR) | payer MEDICARE, BC, SELFPAY ==
--- NOTE | 2025-10-02 | ECG_ITS ---
[facility] Test Date: 2025-10-02 Pat Name: Eric Lomeli Department: Room: Gender: Male Carpenter/Labor: : 1940 Requested By: Gisel Ocampo Order Number: [id number] Bell MD: Yohannes Thomas M.D. Interpretive Statements Lung unchanged pre/post procedure; Intraprocedure shortess of breath; Symptoms resoled by discharge PROCEDURE: At the baseline, the EKG revealed sinus rhythm with borderline first-degree AV block. Nonspecific IVCD. The baseline heart was 80 bpm with a blood pressue of 93/72 mm of Hg Lexiscan was infused over a period of 20 seconds. A total of 0.4 milligrams of Lexiscan was infused. The stress phase was continued for a total of 5 minutes. Heart rate at the end of the stress phase was 105 bpm with a blood pressure 128/102 mm of Hg. The EKG at the peak infusion revealed no significant changes. Sestamibi was injected 20 seconds after the Lexiscan infusion. Heart rate at the end of the recovery phase was 97 bpm with a blood pressure of 143/88 mm of Hg. CONCLUSION: 1. No significant EKG changes with the LexiScan infusion 2. No LexiScan induced chest pain or cardiac arrhythmia 3. Normal blood pressure and heart rate response 4. Sestamibi/sestamibi perfusion scan pending; see separate report. Electronically Signed On 10-03-2025 09:25:12 GOLF COURSE STARTER by Yohannes Thomas M.D. [email or web address]
[2025-10-02 08:21] VITALS: BMI 24.3
--- NOTE | 2025-10-02 08:49 | NMCV_ITS ---
NM curtis perf SPECT r/s* [id number] Eric Lomeli Age: 85 Gender: M : 1940 Exam Date: 10/02/2025 09:42 Ordering Phys: Gisel Ocampo NP Technologist: JUAN Oliveira Exam Location: [facility] Indications: cp STRESS TEST Please see separate stress test report in [facility] for full findings IMAGE PROTOCOL Rest/Stress 1 Lexiscan Day Radiopharmaceutical Dose (mCi) Administration Site Administered by Rest: Tc-99m 10.3 IV JUAN Mustafa Sestamibi Stress:Tc-99m 32.9 IV JUAN Oliveira Sestamibi Rest: 02-Oct-2025 60 Discovery 630 Stress: 02-Oct-2025 30 Discovery 630 0.4mg Lexiscan. Images obtained in supine and prone position. SPECT RESULTS Technical Quality: Good Raw Data Analysis: Normal Image Corrections: No attenuation or motion correction applied Summed Stress Score: 8 Summed Rest Score: 7 Summed Difference Score: 3 PERFUSION FINDINGS Moderate area of minimal to moderately decrease tracer uptake involving the anterior inferior, basal and mid inferolateral and apical septal segments. Slight reversibility was noted in the basal inferior, inferolateral and apical septal segments. FUNCTIONAL RESULTS (calculated via Gated SPECT) Stress Image LV EF (%): 29 Stress EDV (mL):184 TID: 1.18 Stress ESV (mL):131 FUNCTIONAL FINDINGS: Moderately dilated LV cavity. Slightly increased transient ischemic dilatation ratio IMPRESSIONS 1. Myocardial perfusion imaging revealing moderate area of minimal to moderately decreased tracer uptake involving the inferior, inferolateral and apical regions with some areas of reversibility suggesting myocardial scarring with ischemia predominantly in the distribution of the right coronary artery/circumflex artery. 2. Diminished LV ejection fraction 29%. 3. LV wall motion analysis revealed diffuse hypokinesia of the left ventricle. 4. Moderately dilated LV cavity with an end-systolic volume of 131 mL 5. Slightly elevated transient ischemic dilatation ratio also may suggest endocardial ischemia. Compared to the study from 10/17/2024, the area of ischemia appears to be new Dr Yohannes Thomas MD [facility] (Electronically Signed) Final Date: 02 October 2025 11:58 S
[2025-10-02 10:27] VITALS: BP 132/84; PULSE 98
== END 2025-11-01 23:59 | disposition home or self-care (01) ==
PROVIDERS: Absent Provider Internal Medicine; Family Provider Family Medicine; PCP Nurse Practitioner; Visit Provider Nurse Practitioner Family
DX: R06.02 Shortness of breath (principal); R93.1 Abnormal findings on diagnostic imaging of heart and coronary circulation; I51.89 Other ill-defined heart diseases; I51.7 Cardiomegaly
CPT/HCPCS: 36415; 78452; 93017; 96374; A9500; J2785

== ENCOUNTER 2025-10-16 13:30 | Oncology outpatient (recurring) (ONCR) | payer MEDICARE, BC, SELFPAY ==
[2025-10-09 09:02] VITALS: BP 103/67; PULSE 73; RESP 16; TEMP 36.3; O2SAT 97
[2025-10-09] MEDS: Immune Globulin (Gamunex-C) 20 GM, immune globulin (Gamunex-C) 10 GM in empty flexible ... IV (09:02)
[2025-10-09 09:17] VITALS: BP 114/75; PULSE 73; RESP 16; TEMP 36.3; O2SAT 97
[2025-10-09 10:50] VITALS: BP 120/87; PULSE 78; RESP 16; TEMP 36; O2SAT 100
[2025-10-09 11:18] VITALS: BP 112/71; PULSE 81; RESP 16; TEMP 36.1; O2SAT 98
--- NOTE | 2025-10-16 13:29 | USCV_ITS ---
Eric Lomeli Age: 85 Gender: M : 1940 Exam Date: 10/16/2025 13:45 Ordering Phys: Radha OmalleyP [employer]OTBLAST EQUIPMENT OPERATOR Technologist: Exam Location: [facility] – [place] Indication: as ai BP: / HR: 78 Rhythm: Sinus Technical Quality: MEASUREMENTS (Male / Female) Normal Values 2D ECHO LV Diastolic Diameter PLAX 5.9 cm 4.2 - 5.9 / 3.9 - 5.3 cm IVS Diastolic Thickness 1.0 cm 0.6 - 1.0 / 0.6 - 0.9 cm IVS Systolic Thickness 1.5 cm LVPW Diastolic Thickness 1.2 cm 0.6 - 1.0 / 0.6 - 0.9 cm LVPW Systolic Thickness 1.4 cm LVOT Diameter 2.1 cm LV Ejection Fraction 2D Teich 41.1 % LV Ejection Fraction MOD 4C 39.9 % LV Ejection Fraction MOD 2C 50.0 % LV Ejection Fraction 2C AL 49.9 % LA Diameter 4.5 cm RA Systolic Volume 4C AL 48.2 ml RA Systolic Volume 4C MOD 46.3 ml LA Sys Volume AL 81.5 cm cubed LA Sys Volume Index AL 43.4 cm cubed/m squared Aorta at Sinotubular Diameter 3.7 cm IVC Diameter 1.9 cm M-MODE LA Ao Ratio MM 1.2 AV Cusp Separation MM 1.2 cm DOPPLER AV Peak Velocity 267.0 cm/s LVOT Peak Velocity 70.0 cm/s AV Area Cont Eq vti 0.9 cm squared AV Area Cont Eq pk 0.9 cm squared MV Area PHT 5.1 cm squared Mitral E to A Ratio 1.0 TR Peak Velocity 231.0 cm/s TR Peak Gradient 21.3 mmHg PV Peak Velocity 95.0 cm/s FINDINGS Left Ventricle Diffuse hypokinesia of the left ventricle with an ejection fraction of around 40%. Mildly dilated LV cavity. Right Ventricle Normal right ventricular size and systolic function. Right Atrium Normal right atrial size. Left Atrium Moderately increased left atrial size. Moderately increased left atrial volume 43 ml/m squared. IA Septum Normal appearance of the interatrial septum. Mitral Valve Mild mitral valve regurgitation. Aortic Valve [id number] aortic valve regurgitation. Severe aortic aortic valve stenosis, mean gradient 12.1 mmHg, LORE 0.92 cm squared. Tricuspid Valve Trace tricuspid valve regurgitation. Pulmonic Valve Pulmonic valve not well visualized. Pericardium Small pericardial effusion. Aorta Normal aortic annulus size. IVC Normal inferior vena cava. CONCLUSIONS Diffuse hypokinesia of the left ventricle with an ejection fraction of around 40%. Mildly dilated LV cavity. Moderately increased left atrial size. Moderately increased left atrial volume 43 ml/m squared. Mild mitral valve regurgitation. Severe aortic aortic valve stenosis, mean gradient 12.1 mmHg, LORE 0.92 cm squared. [id number] aortic valve regurgitation. Trace tricuspid valve regurgitation. Estimated pulmonary artery peak systolic pressure within normal limits Small pericardial effusion. There are no intracardiac masses. Compared to the study from 03/02/2025, there is slight worsening of the aortic valve stenosis Dr Yohannes Thomas MD [facility] (Electronically Signed) Final Date: 19 October 2025 08:44 S
== END 2025-11-01 23:59 | disposition home or self-care (01) ==
LOC: RAD 10-17 → ONCMED 10-17 09:18
PROVIDERS: Family Provider Family Medicine; PCP Nurse Practitioner; Visit Provider Nurse Practitioner
DX: I35.0 Nonrheumatic aortic (valve) stenosis; I51.89 Other ill-defined heart diseases; I51.7 Cardiomegaly; I34.0 Nonrheumatic mitral (valve) insufficiency; I35.1 Nonrheumatic aortic (valve) insufficiency; I31.39 Other pericardial effusion (noninflammatory); Z53.9 Procedure and treatment not carried out, unspecified reason
CPT/HCPCS: 93306; 96365; 96366; J1561